=== PATIENT | female | born 1935 | race Caucasian/White ===

== ENCOUNTER 2021-06-12 13:21 | Outpatient (RCR) | payer OTHER, MEDICARE, SELFPAY ==
[2021-06-12] MEDS: diphenhydrAMINE HCl CAP 25 MG CAPSULE PO (14:12)
[2021-06-12] MEDS: ACETAMINOPHEN 325 MG TABLET 650 MG PO (14:13)
[2021-06-12] MEDS: FAMOTIDINE 20 MG TABLET PO (14:13)
[2021-06-12 14:24] VITALS: BP 168/67; PULSE 98; RESP 20; TEMP 38.2; O2SAT 94
[2021-06-12 15:39] VITALS: BP 130/60
== END 2021-06-12 16:00 | disposition home or self-care (01) ==
LOC: AMCINF 13:21
PROVIDERS: PCP Internal Medicine; Referring Provider Physician Assistant; Visit Provider Internal Medicine Hematology & Oncology
DX: Z23 Encounter for immunization (principal); U07.1 COVID-19; I10 Essential (primary) hypertension
CPT/HCPCS: A9270; M0243; Q0243